=== PATIENT | male | born 1985 | race Two or more races ===

== ENCOUNTER 2019-08-09 20:10 | Emergency (ER) | payer OTHER ==
[~2019-08-09] VITALS: Ht 167.6 cm; Wt 70.3 kg
[2019-08-09 20:28] VITALS: BP 132/67
[2019-08-09] MEDS ORDERED: ONDANSETRON 4 MG TAB.RAPDIS ONE (20:46)
[2019-08-09] MEDS ORDERED: HYDROCODONE/APAP 5/325MG 1 EACH TABLET ONE (20:46)
[2019-08-09] MEDS ORDERED: HYDROCODONE/APAP 5/325MG 1 EACH TABLET PO ONE (21:00)
[2019-08-09] MEDS ORDERED: ONDANSETRON 4 MG TAB.RAPDIS PO ONE (21:00)
[2019-08-09] MEDS ORDERED: ACETAMINOPHEN ES 500 MG TABLET ONE (21:15)
[2019-08-09] MEDS ORDERED: ACETAMINOPHEN 325 MG TABLET PO ONE (21:30)
--- NOTE | 2019-08-09 22:02 | NUR ---
PT REFUSED NORCO 5-325 ONE TABLET FOR PAIN. WASTED NORCO 5-325 ONE TABLET WITH HONEY BRIAN BUT GLEN DID NOT ASK FOR WITNESS.
== END 2019-08-09 22:49 | disposition home or self-care (01) ==
LOC: ER 20:10
DX: S62.320A Displaced fracture of shaft of second metacarpal bone, right hand, initial encounter for closed fracture (principal); S62.322A Displaced fracture of shaft of third metacarpal bone, right hand, initial encounter for closed fracture; X58.XXXA Exposure to other specified factors, initial encounter; Y93.67 Activity, basketball; Y92.39 Other specified sports and athletic area as the place of occurrence of the external cause; Y99.8 Other external cause status
CPT/HCPCS: 29125; 73130; 99283; Q0162